=== PATIENT | female | born 1965 | race Caucasian/White ===

== ENCOUNTER 2019-01-22 15:59 | Emergency (ER) | payer MEDICARE, MEDICAID, OTHER ==
[2019-01-22] MEDS: KETOROLAC 30 MG INJ IM (17:15)
[2019-01-22] MEDS: LIDOCAINE 1% (MDV) 20 ML INJ SC (17:51)
[2019-01-22] MEDS ORDERED: HYDROCODONE/APAP (10/325) TAB PO (18:00)
== END 2019-01-22 19:35 | disposition home or self-care (01) ==
LOC: FTE 19:35
DX: S62.636A Displaced fracture of distal phalanx of right little finger, initial encounter for closed fracture (principal); F17.210 Nicotine dependence, cigarettes, uncomplicated; W07.XXXA Fall from chair, initial encounter; Y92.9 Unspecified place or not applicable
CPT/HCPCS: 26755; 73130-RT; 96372; 99284-25